=== PATIENT | male | born 1990 ===

== ENCOUNTER 2017-09-23 08:10 | Emergency (ER) | payer MEDICAID, OTHER ==
[2017-09-23] MEDS ORDERED: Acetaminophen-Codeine 300/30 mg Tab PO STA (08:53)
[2017-09-23 08:56] VITALS: BP 111/72; PULSE 66; RESP 18; TEMP 97.9; O2SAT 97
[2017-09-23] MEDS ORDERED: Acetaminophen-Codeine 300/30 mg Tab PO ONE (08:58)
--- NOTE | 2017-09-23 09:24 | C.PDOC ---
History Of Present Illness 27-year-old male, presents to the emergency department with complaints of left upper dental pain. Patient states he meant to f/u with a dentist, but was unable to due to no insurance. States pain worsened significantly this morning, prompting visit. He denies any nausea/vomiting, fever or any other associated symptoms. No other complaints at this time. Chief Complaint (Nursing): Dental Pain History Per: Patient History/Exam Limitations: no limitations Current Symptoms Are (Timing): Still Present Severity: Moderate Past Medical History Reviewed: Historical Data, Nursing Documentation, Vital Signs Vital Signs: Last Vital Signs Temp 97.9 F 09/23/17 08:56 Pulse 66 09/23/17 08:56 Resp 18 09/23/17 08:56 BP 111/72 09/23/17 08:56 Pulse Ox 97 09/23/17 17:35 - Medical History PMH: Asthma Family History: States: Unknown Family Hx - Social History Hx Tobacco Use: Yes Hx Alcohol Use: No Hx Substance Use: No - Immunization History Hx Tetanus Toxoid Vaccination: No Hx Influenza Vaccination: No Hx Pneumococcal Vaccination: No Review Of Systems Constitutional: Negative for: Fever, Chills ENT: Positive for: Other (teeth pain) Respiratory: Negative for: Shortness of Breath Gastrointestinal: Negative for: Nausea, Vomiting Musculoskeletal: Negative for: Neck Pain Physical Exam - Physical Exam Appears: Well, Non-toxic, No Acute Distress Skin: Normal Color, Warm, Dry, No Rash Head: Atraumatic, Normacephalic Eye(s): bilateral: Normal Inspection Nose: Normal Oral Mucosa: Moist Lips: Normal Appearing Teeth: Caries (left upper ), Tender To Palpation ((-)swelling) Neck: Normal ROM Chest: Symmetrical Cardiovascular: Rhythm Regular, No Murmur Respiratory: Normal Breath Sounds, No Accessory Muscle Use Neurological/Psych: Oriented x3, Normal Speech ED Course And Treatment O2 Sat by Pulse Oximetry: 97 (RA) Pulse Ox Interpretation: Normal Disposition - Disposition Referrals: Raulito Palacio [facility] [place] [Outside] Disposition: HOME/ ROUTINE Disposition Time: 09:21 Condition: STABLE Additional Instructions: Follow up with dentist ANA. REturn to ED if feel worse. Prescriptions: Ibuprofen [Motrin Tab] 600 mg PO Q8 #30 tab Penicillin VK [Penicillin VK Tab] 500 mg PO Q6 #28 tab Acetaminophen with Codeine [Tylenol with Codeine #3 Tablet] 1 each PO .Q4-6 #20 tablet Instructions: Dental Pain (DC) Forms: Compliance 11 (Macedonian)[facility] - Clinical Impression Clinical Impression: Dental caries - Scribe Statement The provider has reviewed the documentation as recorded by the Scribe (Miguel Hicks) All medical record entries made by the Scribe were at my direction and personally dictated by me. I have reviewed the chart and agree that the record accurately reflects my personal performance of the history, physical exam, medical decision making, and the department course for this patient. I have also personally directed, reviewed, and agree with the discharge instructions and disposition.
== END 2017-09-23 09:30 | disposition home or self-care (01) ==
LOC: C.ER 08:10
DX: K02.9 Dental caries, unspecified (principal)